=== PATIENT | male | born 1960 | race Caucasian/White ===

== ENCOUNTER → 2017-01-15 | Outpatient (CLI) | payer MEDICARE, MEDICAID ==
[~2017-01-15] MED LIST: CELEXA20 MG PO; CLARITIN10 MG PO; LIPITOR10 MG PO; PRILOSEC20 M1 PO; TOPCARE LAXATIVE5 MG PO; VITAMIN D-32000 UNIT PO; XARE15TA PO; ZANTAC 150150 MG PO
== END | disposition home or self-care (01) ==
LOC: US 14:21
DX: N50.3 Cyst of epididymis (principal); N50.89 Other specified disorders of the male genital organs; Z86.718 Personal history of other venous thrombosis and embolism

== ENCOUNTER → 2017-02-02 | Outpatient (CLI) | payer MEDICARE, MEDICAID ==
[2017-02-02 09:31] LABS: EST GLOM FILT AFRICAN AMERICAN > 60 ml/min
== END | disposition home or self-care (01) ==
LOC: LAB 08:47 → CT 10:00
PROVIDERS: Radiology Diagnostic Radiology
DX: K40.90 Unilateral inguinal hernia, without obstruction or gangrene, not specified as recurrent (principal); N50.89 Other specified disorders of the male genital organs

== ENCOUNTER → 2017-02-05 | Outpatient (CLI) | payer MEDICARE, MEDICAID | END | disposition home or self-care (01) | LOC: RAD 11:24 | DX: M25.511 Pain in right shoulder (principal); W19.XXXA Unspecified fall, initial encounter ==

== ENCOUNTER → 2017-02-26 | Day surgery (SDC) | payer MEDICARE, MEDICAID ==
[2017-02-23 10:01] LABS: BASO # 0.1 10*3/uL (0.0-0.1); BILIRUBIN NEGATIVE (NEGATIVE); BLOOD NEGATIVE (NEGATIVE); CLARITY CLEAR (CLEAR); COLOR YELLOW (YELLOW); EOS # 0.1 10*3/uL (0.0-0.4); EOS % 2.3 % (1.0-4.0); GLUCOSE NEGATIVE (NEGATIVE); HEMOGLOBIN 14.4 g/dl (14.0-18.0); IG # 0.1 10*3/uL (0.0-0.1); KETONE NEGATIVE (NEGATIVE); LEUKO ESTERASE NEGATIVE (NEGATIVE); LYMPH # 2.1 10*3/uL (1.3-4.4); LYMPH % 33.1 % (27.0-41.0); MEAN CELL VOLUME 98.2 fl (80.0-94.0); MEAN CORPUSCULAR HGB 32.1 pg (27.0-31.0); MEAN CORPUSCULAR HGB CONC 32.7 g/dl (33.0-37.0); MEAN PLATELET VOLUME 10.5 fl (9.6-12.3); MONO # 0.6 10*3/uL (0.1-1.0); NEUT # 3.4 10*3/uL (2.3-7.9); NEUT % 53.8 % (47.0-73.0); NITRITE NEGATIVE (NEGATIVE); PH 5.5 (5.0-9.0); PLATELET COUNT AUTOMATED 195 10*3/uL (130-400); PROTEIN NEGATIVE (NEGATIVE); RED BLOOD COUNT 4.48 10*6/uL (4.50-5.90); RED CELL DISTRI WIDTH 13.3 % (0-14.5); UROBILINOGEN 0.2 E.U./dl (0.2-1.0); WHITE BLOOD COUNT 6.2 10*3/uL (4.8-10.8)
[2017-02-23 10:24] LABS: PROTHROMBIN TIME 10.3 SECONDS (9.0-12.4)
[2017-02-23 10:28] LABS: ALBUMIN 3.9 gm/dl (3.1-4.5); BILIRUBIN, DIRECT < 0.1 mg/dL (0.0-0.2); BUN 12 mg/dl (7-24); CARBON DIOXIDE 28 mmol/L (21-32); CHLORIDE 104 mmol/L (98-107); EST GLOM FILT AFRICAN AMERICAN > 60 ml/min; GLUCOSE 86 mg/dL (65-99); POTASSIUM 3.9 mmol/L (3.5-5.1); SGOT/AST 28 IU/L (3-35); SGPT/ALT 27 U/L (12-78); SODIUM 141 mmol/L (136-145)
[2017-02-23 10:30] LABS: ALKALINE PHOSPHATASE 108 U/L (45-117); BILIRUBIN, TOTAL 0.5 mg/dl (0.2-1.0); TOTAL PROTEIN 8.3 gm/dL (6.4-8.2)
[2017-02-26] VITALS (7 sets, daily range): BP systolic 117–162; BP diastolic 57–96
[~2017-02-26] VITALS: Ht 182.8 cm; Wt 86.2 kg
[~2017-02-26] MED LIST changes: +HYDROCODONE BIT1 T11 PO
--- NOTE | ~2017-02-26 | O ---
[place], [place] OPERATIVE NOTE NAME: CHAVEZ PLEITEZ [facility] #: [id number] UNIT #: [id number] ROOM: DOCTOR: ZEFERINO LEE MD BIRTHDATE: [birth year] DOS: 02/26/2017 PREOPERATIVE DIAGNOSIS: Right inguinal hernia. POSTOPERATIVE DIAGNOSIS: Right inguinal hernia. PROCEDURE: Right inguinal hernia repair with plug and mesh (large). SURGEON: Zeferino Lee M.D. BOX LIDDER: JACQUELINE. ANESTHESIA: General with endotracheal intubation. INDICATIONS: This is a 56-year-old gentleman who is here for a repair of a large right-sided inguinal hernia. The procedure and its complications were explained to the patient and his sister in detail preoperatively. Complications that were discussed included but were not limited to bleeding, infection, recurrence, prolonged postoperative pain, damage to underlying vital structures. He agreed to proceed. DESCRIPTION OF PROCEDURE: After identifying the patient, the patient was brought to the operating suite and laid in the supine position. After induction of general anesthesia, the parts were painted and draped in the usual sterile fashion. A time-out procedure was called. An incision was marked in the right groin parallel to the right inguinal ligament. The skin and the subcutaneous tissue were incised in the line of the incision. The external oblique aponeurosis was incised in the line of its fibers. The cord structures were identified and a large hernial sac was incised and was found to contain small intestine. The part of the intestine was removed carefully from the scrotum and then was allowed to retract back into the peritoneal cavity. Thereafter, the sac was from the cord structures and the cord structures itself were encircled with the help of a Jon drain. Part of the sac was excised and sent for histopathological diagnosis. The part of the sac that was in the scrotum was allowed to retract back into the scrotum. The remant of the sac at the end of the excision was sutured with the help of 0 Vicryl and allowed to retract back into the peritoneal cavity. At this point, a large Prolene mesh was brought in and placed in the internal ring and sutured to the overlying structures with the help of interrupted 2-0 Prolene. Thereafter, a mesh was brought in and placed around the cord and sutured to the upturned part of the inguinal ligament inferiorly and to the conjoined tendon superiorly with the help of a running 2-0 Prolene. Thereafter, the external oblique aponeurosis was approximated with the help of 0 Vicryl in a running fashion. Saline was used for irrigation. The subcutaneous tissue was approximated with the help of 3-0 Vicryl in a running fashion and the skin edges were approximated with the help of 4-0 Vicryl in a subcuticular running fashion after the edges were infiltrated with 1% plain lidocaine. A dressing was placed. The patient tolerated the procedure well. There were no complications. Dr. Zeferino Lee, the attending surgeon, was present throughout the operating case. [place], [place] OPERATIVE NOTE NAME: MAIKCHAVEZ Zackary UNIT #: [id number] ROOM: DOCTOR: ZEFERINO LEE MD BIRTHDATE: [birth year] Zeferino Lee MD CM:OPRECORD:OPERATIVE NOTE [id number] ZEFERINO LEE MD 02/28/17 0730 interface
== END | disposition home or self-care (01) ==
LOC: SDC 02-23 09:30
PROVIDERS: Surgery
DX: K40.90 Unilateral inguinal hernia, without obstruction or gangrene, not specified as recurrent (principal); F32.9 Major depressive disorder, single episode, unspecified; Z86.718 Personal history of other venous thrombosis and embolism; Z98.890 Other specified postprocedural states

== ENCOUNTER 2017-03-16 17:45 | Inpatient (IN) | payer MEDICARE, MEDICAID ==
[~2017-03-16] VITALS: Ht 188 cm; Wt 83.9 kg
[2017-03-16 17:52] VITALS: BP 141/61
[2017-03-16 19:42] LABS: BASO # 0.1 10*3/uL (0.0-0.1); BASO % 0.5 % (0.0-1.0); EOS # 0.2 10*3/uL (0.0-0.4); EOS % 1.6 % (1.0-4.0); HEMATOCRIT 39.2 % (42.0-52.0); HEMOGLOBIN 12.8 g/dl (14.0-18.0); IG # 0.1 10*3/uL (0.0-0.1); LYMPH # 1.3 10*3/uL (1.3-4.4); LYMPH % 14.4 % (27.0-41.0); MEAN CELL VOLUME 96.8 fl (80.0-94.0); MEAN CORPUSCULAR HGB 31.6 pg (27.0-31.0); MEAN CORPUSCULAR HGB CONC 32.7 g/dl (33.0-37.0); MEAN PLATELET VOLUME 10.4 fl (9.6-12.3); MONO # 1.1 10*3/uL (0.1-1.0); MONO % 11.4 % (3.0-9.0); NEUT # 6.6 10*3/uL (2.3-7.9); NEUT % 71.6 % (47.0-73.0); PLATELET COUNT AUTOMATED 197 10*3/uL (130-400); RED BLOOD COUNT 4.05 10*6/uL (4.50-5.90); RED CELL DISTRI WIDTH 12.3 % (0-14.5); WHITE BLOOD COUNT 9.2 10*3/uL (4.8-10.8)
[2017-03-16 20:00] VITALS: BP 125/82
[2017-03-16 20:05] LABS: PROTHROMBIN TIME 10.8 SECONDS (9.0-12.4)
[2017-03-16 20:09] VITALS: BP 120/79
[2017-03-16 20:10] LABS: ALBUMIN 3.5 gm/dl (3.1-4.5); ALKALINE PHOSPHATASE 124 U/L (45-117); BILIRUBIN, TOTAL 0.5 mg/dl (0.2-1.0); BUN 21 mg/dl (7-24); CARBON DIOXIDE 26 mmol/L (21-32); CHLORIDE 103 mmol/L (98-107); EST GLOM FILT AFRICAN AMERICAN > 60 ml/min; GLUCOSE 116 mg/dL (65-99); POTASSIUM 4.2 mmol/L (3.5-5.1); SGPT/ALT 20 U/L (12-78); SODIUM 140 mmol/L (136-145); TOTAL PROTEIN 8.6 gm/dL (6.4-8.2)
[2017-03-16 20:13] LABS: SGOT/AST 16 IU/L (3-35)
[2017-03-17] VITALS: BP 130/76
[2017-03-17 03:53] LABS: BASO # 0.1 10*3/uL (0.0-0.1); BASO % 0.5 % (0.0-1.0); EOS # 0.2 10*3/uL (0.0-0.4); EOS % 2.1 % (1.0-4.0); HEMATOCRIT 37.6 % (42.0-52.0); HEMOGLOBIN 12.1 g/dl (14.0-18.0); IG # 0.1 10*3/uL (0.0-0.1); LYMPH # 2.3 10*3/uL (1.3-4.4); LYMPH % 23.3 % (27.0-41.0); MEAN CELL VOLUME 98.9 fl (80.0-94.0); MEAN CORPUSCULAR HGB 31.8 pg (27.0-31.0); MEAN CORPUSCULAR HGB CONC 32.2 g/dl (33.0-37.0); MEAN PLATELET VOLUME 10.2 fl (9.6-12.3); MONO # 0.9 10*3/uL (0.1-1.0); MONO % 9.3 % (3.0-9.0); NEUT # 6.4 10*3/uL (2.3-7.9); NEUT % 64.3 % (47.0-73.0); PLATELET COUNT AUTOMATED 198 10*3/uL (130-400); RED CELL DISTRI WIDTH 12.3 % (0-14.5)
[2017-03-17 04:00] VITALS: BP 126/77
[2017-03-17 04:09] LABS: ALBUMIN 3.3 gm/dl (3.1-4.5); ALKALINE PHOSPHATASE 118 U/L (45-117); BILIRUBIN, TOTAL 0.6 mg/dl (0.2-1.0); BUN 18 mg/dl (7-24); CARBON DIOXIDE 24 mmol/L (21-32); CHLORIDE 103 mmol/L (98-107); EST GLOM FILT AFRICAN AMERICAN > 60 ml/min; GLUCOSE 133 mg/dL (65-99); INTERNATIONAL NORM RATIO 1.1 (2.0-3.5); MAGNESIUM 2.1 mg/dL (1.5-2.1); PHOSPHOROUS 2.6 mg/dL (2.5-4.9); POTASSIUM 3.7 mmol/L (3.5-5.1); PROTHROMBIN TIME 11.2 SECONDS (9.0-12.4); SGOT/AST 18 IU/L (3-35); SGPT/ALT 17 U/L (12-78); SODIUM 139 mmol/L (136-145); TOTAL PROTEIN 8.2 gm/dL (6.4-8.2)
[2017-03-17 04:16] LABS: HEMOGLOBIN A1c 6.5 % (4.8-5.6)
== END 2017-03-17 05:20 | disposition short-term general hospital (02) | DRG 299 ==
LOC: ED 17:45 → EDHOLD 19:56 → 4E 20:02
PROVIDERS: Family Medicine; Nurse Practitioner Family
DX: I82.412 Acute embolism and thrombosis of left femoral vein (principal); I26.92 Saddle embolus of pulmonary artery without acute cor pulmonale; F32.9 Major depressive disorder, single episode, unspecified; K21.9 Gastro-esophageal reflux disease without esophagitis; E78.5 Hyperlipidemia, unspecified; E59 Dietary selenium deficiency; D53.9 Nutritional anemia, unspecified; R73.9 Hyperglycemia, unspecified; R00.0 Tachycardia, unspecified; J30.2 Other seasonal allergic rhinitis; Z83.2 Family history of diseases of the blood and blood-forming organs and certain disorders involving the immune mechanism; Z82.49 Family history of ischemic heart disease and other diseases of the circulatory system; Z83.3 Family history of diabetes mellitus; Z79.899 Other long term (current) drug therapy; E55.9 Vitamin D deficiency, unspecified

== ENCOUNTER → 2017-04-20 | Outpatient (CLI) | payer MEDICARE, MEDICAID | END | disposition home or self-care (01) | LOC: US 09:39 | DX: N63 Unspecified lump in breast (principal) ==

== ENCOUNTER → 2017-06-01 | Outpatient (CLI) | payer MEDICARE, MEDICAID | END | disposition home or self-care (01) | LOC: US 10:50 | DX: N61.0 Mastitis without abscess (principal) ==

== ENCOUNTER 2017-11-28 12:55 | Inpatient (IN) | payer MEDICARE ==
[~2017-11-28] VITALS: Ht 187.9 cm; Wt 87.8 kg
[2017-11-28 12:59] VITALS: BP 146/66
[2017-11-28 15:22] LABS: BASO # 0.1 10*3/uL (0.0-0.1); EOS # 0.2 10*3/uL (0.0-0.4); EOS % 2.9 % (1.0-4.0); HEMATOCRIT 35.4 % (42.0-52.0); LYMPH # 1.6 10*3/uL (1.3-4.4); MEAN CELL VOLUME 94.1 fl (80.0-94.0); MEAN CORPUSCULAR HGB 29.3 pg (27.0-31.0); MEAN CORPUSCULAR HGB CONC 31.1 g/dl (33.0-37.0); MEAN PLATELET VOLUME 10.3 fl (9.6-12.3); MONO # 0.8 10*3/uL (0.1-1.0); MONO % 13.2 % (3.0-9.0); NEUT # 3.6 10*3/uL (2.3-7.9); NEUT % 57.6 % (47.0-73.0); PLATELET COUNT AUTOMATED 187 10*3/uL (130-400); RED BLOOD COUNT 3.76 10*6/uL (4.50-5.90); RED CELL DISTRI WIDTH 15.1 % (0-14.5); WHITE BLOOD COUNT 6.2 10*3/uL (4.8-10.8)
[2017-11-28 15:39] LABS: ALBUMIN 3.7 gm/dl (3.1-4.5); BUN 14 mg/dl (7-24); CHLORIDE 103 mmol/L (98-107); CREATININE 1.16 mg/dL (0.70-1.30); POTASSIUM 4.3 mmol/L (3.5-5.1); SGOT/AST 28 IU/L (3-35); SGPT/ALT 24 U/L (12-78); SODIUM 138 mmol/L (136-145); TOTAL PROTEIN 7.8 gm/dL (6.4-8.2)
[2017-11-28 15:42] LABS: ALKALINE PHOSPHATASE 104 U/L (45-117)
[2017-11-28 15:44] LABS: TROPONIN I < 0.015 ng/ml (<0.045)
[2017-11-28 16:51] VITALS: BP 134/68
[2017-11-28 18:00] VITALS: BP 154/87
[2017-11-28 20:00] VITALS: BP 147/87
[2017-11-29 00:35] VITALS: BP 132/82
[2017-11-29 05:49] LABS: BASO # 0.1 10*3/uL (0.0-0.1); BASO % 0.9 % (0.0-1.0); EOS # 0.2 10*3/uL (0.0-0.4); EOS % 2.8 % (1.0-4.0); HEMATOCRIT 34.4 % (42.0-52.0); LYMPH # 1.8 10*3/uL (1.3-4.4); LYMPH % 25.9 % (27.0-41.0); MEAN CELL VOLUME 93.7 fl (80.0-94.0); MEAN PLATELET VOLUME 11.1 fl (9.6-12.3); MONO # 0.8 10*3/uL (0.1-1.0); MONO % 11.5 % (3.0-9.0); NEUT # 4.1 10*3/uL (2.3-7.9); NEUT % 58.6 % (47.0-73.0); PLATELET COUNT AUTOMATED 191 10*3/uL (130-400); RED BLOOD COUNT 3.67 10*6/uL (4.50-5.90); RED CELL DISTRI WIDTH 15.2 % (0-14.5)
[2017-11-29 06:14] LABS: ALBUMIN 3.5 gm/dl (3.1-4.5); ALKALINE PHOSPHATASE 105 U/L (45-117); BUN 11 mg/dl (7-24); CHLORIDE 106 mmol/L (98-107); CHOLESTEROL 147 mg/dL (<200); CREATININE 1.21 mg/dL (0.70-1.30); FREE T4 0.84 ng/dl (0.76-1.46); HDL CHOLESTEROL 42 mg/dl (40-60); LDL CHOLESTEROL 82 mg/dL (9-159); PHOSPHOROUS 3.3 mg/dL (2.5-4.9); POTASSIUM 4.2 mmol/L (3.5-5.1); SGOT/AST 30 IU/L (3-35); SGPT/ALT 24 U/L (12-78); SODIUM 141 mmol/L (136-145); TOTAL PROTEIN 7.8 gm/dL (6.4-8.2); TRIGLYCERIDES 113 mg/dl (<150); VLDL CHOLESTEROL 23 mg/dL (6-40)
[2017-11-29 08:00] VITALS: BP 137/87
[2017-11-29 12:00] VITALS: BP 111/74
[2017-11-29] MEDS ORDERED: XARE20MG PO (13:23)
[2017-11-29] MEDS ORDERED: CYCLOBENZAPRINE10 MG PO (13:24)
== END 2017-11-29 14:05 | disposition home or self-care (01) | DRG 914 ==
LOC: ED 12:55 → 5E 17:28 → EDHOLD 17:28 → 5E 11-29 14:05
PROVIDERS: Emergency Medicine; Family Medicine
DX: S29.9XXA Unspecified injury of thorax, initial encounter (principal); D64.9 Anemia, unspecified; E53.8 Deficiency of other specified B group vitamins; E55.9 Vitamin D deficiency, unspecified; K21.9 Gastro-esophageal reflux disease without esophagitis; F32.9 Major depressive disorder, single episode, unspecified; R73.9 Hyperglycemia, unspecified; E78.5 Hyperlipidemia, unspecified; E78.00 Pure hypercholesterolemia, unspecified; X58.XXXA Exposure to other specified factors, initial encounter; Y93.89 Activity, other specified; Y92.098 Other place in other non-institutional residence as the place of occurrence of the external cause; Y99.8 Other external cause status; Z86.711 Personal history of pulmonary embolism; Z86.718 Personal history of other venous thrombosis and embolism; Z82.49 Family history of ischemic heart disease and other diseases of the circulatory system; Z83.3 Family history of diabetes mellitus; Z81.8 Family history of other mental and behavioral disorders; Z79.899 Other long term (current) drug therapy

== ENCOUNTER → 2018-02-22 | Outpatient (CLI) | payer MEDICARE ==
[~2018-02-22] MED LIST changes: +CYCLOBENZAPRINE10 MG PO; +MIRALAX119 GM PO; +XARE20MG PO
== END | disposition home or self-care (01) ==
LOC: RAD 11:20
DX: J98.11 Atelectasis (principal)

== ENCOUNTER → 2018-02-26 | Day surgery (SDC) | payer MEDICARE ==
[~2018-02-26] VITALS: Ht 187.9 cm; Wt 88.0 kg
--- NOTE | ~2018-02-26 | O ---
[place], [place] OPERATIVE NOTE NAME: CHAVEZ PLEITEZ UNIT #: [id number] ROOM: DOCTOR: YAMILETH COX MD BIRTHDATE: [birth year] DOS: 02/26/2018 GASTROENDOSCOPIC REPORT INDICATIONS: A 57-year-old patient with chief complaint of change in bowel habits, constipation and colonic screening. ALLERGIES: To no known medication. FAMILY HISTORY: Noncontributory. PAST SURGICAL HISTORY: Right inguinal area. PAST MEDICAL HISTORY: Hypocholesteremia, DVT and PE. SOCIAL HISTORY: Nonsmoker, nonalcohol consumer. PROCEDURE: Today's procedure part of investigation is colonoscopy and piecemeal polypectomy. PREMEDICATION: Versed and propofol. SCOPE: Olympus folding colonoscope 10L video. REPORT: After putting the patient in left lateral position and application of lubricant to the scope, the scope was introduced. Thereafter, under direct visualization, advanced through the length of colon without difficulty. Base of the cecum was explored, appendiceal orifice was identified, and ileocecal valve was defined. Scope was gradually withdrawn from ascending, transverse, descending colon. Sessile polypoid lesion in rectum with piecemeal polypectomy removed. The patient extubated, tolerated procedure well. IMPRESSION: Sessile colonic polyp in rectal pouch, status post piecemeal polypectomy, otherwise normal colonoscopic examination. PLAN AND DISCUSSION: High fiber fruit diet was advised. MiraLax 17 g q.p.m. recommended for p.r.n. use. Follow up as outpatient when biopsy is available. Follow-up colonoscopy in 10 years unless patient has symptoms for which follow-up should be sooner. I thank you very much indeed. [place], [place] OPERATIVE NOTE NAME: CHAVEZ PLEITEZ UNIT #: [id number] ROOM: DOCTOR: YAMILETH COX MD BIRTHDATE: [birth year] YAMILETH COX MD CM:OPRECORD:OPERATIVE NOTE [id number] YULIA COX MD 03/08/18 1692 interface
[2018-02-26 10:00] VITALS: BP 156/84
[2018-02-26 12:07] VITALS: BP 109/68
[2018-02-26 12:22] VITALS: BP 110/64
[2018-02-26 12:37] VITALS: BP 116/73
== END | disposition home or self-care (01) ==
LOC: SDC 02-23 08:45
DX: K62.1 Rectal polyp (principal); E78.00 Pure hypercholesterolemia, unspecified; D64.9 Anemia, unspecified; F32.9 Major depressive disorder, single episode, unspecified; Z98.890 Other specified postprocedural states; Z86.718 Personal history of other venous thrombosis and embolism; Z79.01 Long term (current) use of anticoagulants; Z86.711 Personal history of pulmonary embolism; Z79.899 Other long term (current) drug therapy

== ENCOUNTER → 2018-05-11 | Outpatient (CLI) | payer MEDICARE ==
[2018-05-11 12:57] LABS: BASO % 0.7 % (0.0-1.0); EOS # 0.1 10*3/uL (0.0-0.4); EOS % 2.2 % (1.0-4.0); HEMATOCRIT 35.8 % (42.0-52.0); HEMOGLOBIN 10.9 g/dl (14.0-18.0); LYMPH # 1.9 10*3/uL (1.3-4.4); MEAN CELL VOLUME 93.5 fl (80.0-94.0); MEAN CORPUSCULAR HGB 28.5 pg (27.0-31.0); MEAN CORPUSCULAR HGB CONC 30.4 g/dl (33.0-37.0); MEAN PLATELET VOLUME 10.8 fl (9.6-12.3); MONO # 0.7 10*3/uL (0.1-1.0); NEUT # 3.2 10*3/uL (2.3-7.9); NEUT % 53.8 % (47.0-73.0); PLATELET COUNT AUTOMATED 223 10*3/uL (130-400); RED BLOOD COUNT 3.83 10*6/uL (4.50-5.90); RED CELL DISTRI WIDTH 16.1 % (0-14.5); WHITE BLOOD COUNT 5.9 10*3/uL (4.8-10.8)
== END | disposition home or self-care (01) ==
LOC: LAB 11:26
PROVIDERS: Internal Medicine
DX: K92.1 Melena (principal)

== ENCOUNTER → 2018-06-15 | Outpatient (CLI) | payer MEDICARE ==
[2018-06-16 15:03] LABS: ENDOMYSIAL ANTIBODY IgA Negative (Negative)
[2018-06-16 16:06] LABS: t-TRANSGLUTAMINASE (tTG) IGA 8 U/mL (0-3); t-TRANSGLUTAMINASE (tTG) IgG <2 U/mL (0-5)
== END | disposition home or self-care (01) ==
LOC: LAB 13:19 → US 13:30
PROVIDERS: Internal Medicine
DX: N63.20 Unspecified lump in the left breast, unspecified quadrant (principal); D50.9 Iron deficiency anemia, unspecified; N61.0 Mastitis without abscess

== ENCOUNTER → 2019-03-22 | Outpatient (CLI) | payer MEDICARE, MEDICAID ==
--- NOTE | ~2019-03-22 | EKG ---
[place], [place] ELECTROCARDIOGRAM REPORT NAME: CHAVEZ PLEITEZ UNIT #: [id number] ROOM: DOCTOR: EPIPHANY DRAFT REPORT BIRTHDATE: [birth year] [facility] Test Date: 2019-03-22 Test Time: 13:46:53 Pat Name: CHAVEZ PLEITEZ Department: Room: Gender: M Tube Blower: : 1960 Requested By: DEMETRIUS WILDE Order Number: [id number] Reading MD: Demetrius Wilde MD Measurements Intervals [place] Rate: 66 P: -4 AR: 177 QRS: -20 QRSD: 95 T: -8 QT: 415 QTc: 435 Interpretive Statements Sinus rhythm Borderline left axis deviation RSR' in V1 or V2, right VCD or RVH Borderline T abnormalities, inferior leads Borderline ST elevation, lateral leads Electronically Signed On 03-23-2019 8:00:49 PDT by Demetrius Wilde MD CM:EKGRPT:ELECTROCARDIOGRAM REPORT [id number] DEMETRIUS WILDE MD EPIPHANY DRAFT REPORT DEMETRIUS WILDE MD
[2019-03-22 14:57] LABS: BASO % 0.6 % (0.0-1.0); EOS # 0.1 10*3/uL (0.0-0.4); EOS % 1.7 % (1.0-4.0); HEMOGLOBIN 13.8 g/dl (14.0-18.0); LYMPH # 1.9 10*3/uL (1.3-4.4); LYMPH % 26.8 % (27.0-41.0); MEAN CELL VOLUME 101.7 fl (80.0-94.0); MEAN CORPUSCULAR HGB 33.4 pg (27.0-31.0); MEAN CORPUSCULAR HGB CONC 32.9 g/dl (33.0-37.0); MEAN PLATELET VOLUME 11.2 fl (9.6-12.3); MONO # 0.8 10*3/uL (0.1-1.0); MONO % 10.6 % (3.0-9.0); NEUT # 4.3 10*3/uL (2.3-7.9); NEUT % 59.9 % (47.0-73.0); PLATELET COUNT AUTOMATED 159 10*3/uL (130-400); RED BLOOD COUNT 4.13 10*6/uL (4.50-5.90); RED CELL DISTRI WIDTH 13.3 % (0-14.5); WHITE BLOOD COUNT 7.2 10*3/uL (4.8-10.8)
[2019-03-22 15:29] LABS: ALBUMIN 4.1 gm/dl (3.1-4.5); BUN 13 mg/dl (7-24); CHLORIDE 108 mmol/L (98-107); CREATININE 1.15 mg/dL (0.70-1.30); POTASSIUM 3.8 mmol/L (3.5-5.1); SGOT/AST 30 IU/L (3-35); SGPT/ALT 36 U/L (12-78); SODIUM 142 mmol/L (136-145)
[2019-03-22 15:39] LABS: ALKALINE PHOSPHATASE 106 U/L (45-117); FREE T4 0.89 ng/dl (0.76-1.46); TOTAL PROTEIN 8.4 gm/dL (6.4-8.2)
== END | disposition home or self-care (01) ==
LOC: LAB 12:57 → US 13:00
PROVIDERS: Internal Medicine
DX: I08.1 Rheumatic disorders of both mitral and tricuspid valves (principal); R42 Dizziness and giddiness; E78.5 Hyperlipidemia, unspecified; I10 Essential (primary) hypertension; Z79.899 Other long term (current) drug therapy

== ENCOUNTER → 2019-04-13 | Outpatient (CLI) | payer MEDICARE ==
--- NOTE | ~2019-04-13 | HM ---
[place], [place] HOLTER MONITOR REPORT [id number] UNIT #: [id number] ROOM: DOCTOR: YULIA WILDE MD BIRTHDATE: [birth year] DOS: 24-HOUR HOLTER MONITOR REPORT NARRATIVE SUMMARY: Average heart rate was 74 beats per minute. Minimum heart rate was 52 beats per minute. Maximum heart rate was 141 beats per minute. Then, ventricular ectopic activity consisted of 398 beats of which 317 were single PVCs and 79 were interpolated PVCs. Two were single ventricular ectopics. The patient's rhythm included 1 hour and 3 minutes of bradycardia. The slowest single episode of bradycardia was 52 beats per minute, which lasted about 3 minutes. The patient also had about 1 hour and 7 minutes of tachycardia. The fastest heart rate was 141 beats per minute, which lasted for about 15 minutes. Supraventricular ectopic activity consisted of 4 beats of which 4 were single PVCs. Longest [place] interval was occurring at 1.4 seconds. IMPRESSION: Essentially normal Holter monitor except for PVCs and PACs noted. No other abnormal rhythm found. YULIA WILDE MD CM:HOLTER:HOLTER MONITOR REPORT [id number] YULIA WILDE MD
--- NOTE | ~2019-04-13 | EKG ---
[place], [place] ELECTROCARDIOGRAM REPORT NAME: CHAVEZ PLEITEZ UNIT #: [id number] ROOM: DOCTOR: YULIA WILDE MD BIRTHDATE: [birth year] DOS: 24-HOUR HOLTER MONITOR REPORT NARRATIVE SUMMARY: Average heart rate was 74 beats per minute. Minimum heart rate was 52 beats per minute. Maximum heart rate was 141 beats per minute. Then, ventricular ectopic activity consisted of 398 beats of which 317 were single PVCs and 79 were interpolated PVCs. Two were single ventricular ectopics. The patient's rhythm included 1 hour and 3 minutes of bradycardia. The slowest single episode of bradycardia was 52 beats per minute, which lasted about 3 minutes. The patient also had about 1 hour and 7 minutes of tachycardia. The fastest heart rate was 141 beats per minute, which lasted for about 15 minutes. Supraventricular ectopic activity consisted of 4 beats of which 4 were single PVCs. Longest [place] interval was occurring at 1.4 seconds. IMPRESSION: Essentially normal Holter monitor except for PVCs and PACs noted. No other abnormal rhythm found. YULIA WILDE MD CM:EKGRPT:ELECTROCARDIOGRAM REPORT [id number] YULIA WILDE MD
== END | disposition home or self-care (01) ==
LOC: MRI 03-03 09:00
DX: R00.2 Palpitations (principal); R42 Dizziness and giddiness; R26.89 Other abnormalities of gait and mobility

== ENCOUNTER → 2019-05-04 | Outpatient (CLI) | payer MEDICARE | END | disposition home or self-care (01) | LOC: CARD 08:48 | DX: R00.2 Palpitations (principal); R42 Dizziness and giddiness ==